=== PATIENT | male | born 1950 | race Caucasian/White ===

== ENCOUNTER 2016-12-11 11:28 | Day surgery (SDC) | payer MEDICARE ==
[2016-12-11] MEDS ORDERED: PROPOFOL 10 MG/ML VIAL IV ONE (14:00)
[2016-12-11] MEDS ORDERED: MIDAZOLAM HCL 2MG/2ML VIAL IV ONE (14:00)
[2016-12-11] MEDS ORDERED: LIDOCAINE 2% MDV (20MG/ML) 20ML VIAL IV ONE (14:00)
--- NOTE | 2016-12-13 13:00 | Operative Note ---
DATE OF SURGERY: 12/11/2016 OPERATION: COLONOSCOPY to the cecum with electrocautery snare polypectomy x3. INDICATION: Prior history of polyps. Patient with family history of colon cancer in his brother. He returns at this time for surveillance. ANESTHESIA: Intravenous sedation was administered by the department of anesthesiology and included Diprivan titrated to effect. PROCEDURE: Following informed consent from this alert individual including a discussion of the risks and benefits of the procedure and an opportunity for the patient to ask questions, the patient was in the left lateral decubitus position. A digital rectal examination was performed. No abnormalities were noted. There was some mild anal stenosis appreciated. Following this, the Olympus BXC046 video colonoscope was inserted into the rectum without resistance. The rectal mucosa had initially a normal appearance with normal folds and distensibility. The rectosigmoid junction demonstrated polyps which were removed upon withdrawal. The colonoscope was then further advanced up through the bowel to the level of the cecum without much difficulty. Throughout the bowel otherwise the mucosa appeared normal, the folds were normal, and the bowel was fairly well distensible. The cecum was defined by noting the appendiceal orifice and ileocecal valve. The colon preparation was good. Retroflexion within the cecum failed to demonstrate changes. The endoscope was then straightened and withdrawn. There was a polyp measuring 7-8 mm in size in the proximal ascending colon which was removed with electrocautery snare polypectomy and suctioned through the colonoscope into a collection trap. There were a few scattered diverticula noted in the sigmoid colon upon withdrawal and again at the rectosigmoid junction there were 2 polyps measuring 7 mm in size each removed with electrocautery snare polypectomy. White eschars were noted. There was no bleeding. Retroflexion in the rectum reveals hypertrophied anal papilla. The endoscope was straightened and withdrawn. The patient tolerated the procedure well and was returned to the recovery area in stable condition. IMPRESSION: 1. A 7-8 mm sessile proximal ascending colon polyp removed with electrocautery snare. 2. Two rectosigmoid junction polyps noted removed with electrocautery snare also measuring approximately 7 mm each in size. 3. Sigmoid diverticulosis. 4. Hypertrophied anal papilla. RECOMMENDATIONS: The patient was advised he should receive a copy of his pathology report at home in the next 2-3 weeks. If not, he was asked to call my office to review the results of testing today. Further recommendations forthcoming pending those results. Followup will also be with Dr. Talavera. Most likely will have recheck colonoscopy in 3 years' time. As always, thank you for allowing me to participate in the care of your patient. CC: WILLIS TALAVERA MD, FACP [facility]
== END 2016-12-11 14:20 | disposition home or self-care (01) ==
LOC: HOP 11:28
PROVIDERS: ATTEND Internal Medicine Gastroenterology
DX: Z12.11 Encounter for screening for malignant neoplasm of colon (principal); D12.2 Benign neoplasm of ascending colon; D12.7 Benign neoplasm of rectosigmoid junction; K57.30 Diverticulosis of large intestine without perforation or abscess without bleeding; K62.89 Other specified diseases of anus and rectum; E78.00 Pure hypercholesterolemia, unspecified